=== PATIENT | female | born 1990 | race Caucasian/White ===

== ENCOUNTER 2016-06-15 00:39 | Inpatient (IN) | payer OTHER ==
[2016-06-15] VITALS (20 sets, daily range): BP systolic 99–130; BP diastolic 54–88
[~2016-06-15 00:39] MED LIST: COLA100C3 PO; IBUP60TA PO; PERCOCET PO; TUMS500C PO; VITAPRTA PO
[2016-06-15] MEDS ORDERED: LR 1,000 ML IV SCH (01:13)
[2016-06-15] MEDS ORDERED: PENICILLIN G POTASSIUM IV 5 MU in D5W MINI-BAG PLUS 100 ML IV STA (01:13)
[2016-06-15] MEDS ORDERED: LACTATED RINGER'S 1000 ML IV ONE (01:15)
[2016-06-15] MEDS ORDERED: OXYTOCIN 30 UNITS IN 0.9% NaCl 500ML IV BAG (J2590) As Ordered ONE (01:27)
[2016-06-15 01:36] LABS: MEAN CORPUSCULAR HEMOGLOBIN 30.4 pg (27.0-33.0); MEAN CORPUSCULAR HGB CONC 34.4 g/dl (32.0-36.5); MEAN CORPUSCULAR VOLUME 88.4 fl (80.0-96.0); RED CELL DISTRIBUTION WIDTH 13.6 % (11.5-14.5); WHITE BLOOD COUNT 9.9 K/mm3 (4.0-10.0)
[2016-06-15] MEDS ORDERED: FENTANYL 2MCG/ML ROPIVACAINE 0.2% IN 0.9% NACL 200ML IVBAG As Ordered ONE (01:44)
[2016-06-15] MEDS ORDERED: OXYTOCIN DRIP 30 UNITS in APPROPRIATE DILUENT 1 EA IV SCH (03:02)
[2016-06-15] MEDS ORDERED: ANUSOL HC CREAM 30GM TOP PRN (03:15)
[2016-06-15] MEDS ORDERED: MEASLES,MUMPS,RUBELLA VACCINE INJ (MMR-II) (90707) SC SCH (03:15)
[2016-06-15] MEDS ORDERED: DOCUSATE SODIUM 100 MG CAP PO PRN (03:15)
[2016-06-15] MEDS ORDERED: OXYTOCIN INJ 10 UNITS/ML VIAL (J2590) IV ONE ×2 (03:15→04:45)
[2016-06-15] MEDS ORDERED: RHOGAM 300 MCG (1500 IU) INJ (J2790) IM SCH (03:15)
[2016-06-15] MEDS ORDERED: DIBUCAINE 1% OINTMENT 30GM TOP PRN (03:15)
[2016-06-15] MEDS ORDERED: LIDOCAINE 1% MDV INJ 50 ML VIAL INFIL ONE ×2 (03:15→04:45)
[2016-06-15] MEDS ORDERED: METHYLERGONOVINE MALEATE 0.2 MG TAB PO PRN (03:15)
[2016-06-15 03:18] LABS: CORD GAS ABE A -2.9; CORD GAS HCO3 A 25.3 MEQ/L; CORD GAS O2 SAT A 38.7 %; CORD GAS PCO2 A 59.1 mmHg; CORD GAS PH A 7.249 UNITS; CORD GAS PO2 A 20.3 mmHg; CORD GAS SBC A 20.8 MEQ/L; CORD GAS TCO2 A 27.1 MEQ/L
[2016-06-15 03:20] LABS: CORD GAS ABE V -2.9; CORD GAS HCO3 V 23.5 MEQ/L; CORD GAS O2 SAT V 59.2 %; CORD GAS PH V 7.316 UNITS; CORD GAS PO2 V 25.5 mmHg; CORD GAS SBC V 21.2 MEQ/L; CORD GAS TCO2 V 24.9 MEQ/L
[2016-06-15] MEDS ORDERED: NALOXONE INJ 0.4 MG/1 ML VIAL (J2310) IV PRN (04:30)
[2016-06-15] MEDS ORDERED: FENTANYL/ROPIVACAINE/NACL BAG 200 ML EPIDURAL SCH (04:30)
[2016-06-15] MEDS ORDERED: ONDANSETRON 4MG/2ML VIAL (J2405) IV PRN (04:30)
[2016-06-15] MEDS ORDERED: EPIDURAL COMMENT XX SCH (04:30)
[2016-06-15] MEDS ORDERED: EPIDURAL/PCA KEYS XX PRN (04:30)
[2016-06-15] MEDS ORDERED: ePHEDrine SULFATE 25 MG/5 ML(5MG/ML) SYRINGE IV PRN (04:30)
[2016-06-15] MEDS ORDERED: diphenhydrAMINE INJ 50MG/ML VIAL (J1200) IV PRN (04:30)
[2016-06-15] MEDS ORDERED: LACTATED RINGER'S 1000 ML IV PRN (04:30)
[2016-06-15] MEDS ORDERED: REFRIGERATOR IV KEYS XX PRN (04:30)
[2016-06-15] MEDS ORDERED: PENICILLIN G POTASSIUM IV 2.5 MU in D5W 100 ML IV SCH (05:15)
[2016-06-15] MEDS: IBUPROFEN 800 MG TAB PO PRN ×2 (06:45→16:24)
[2016-06-15] MEDS: ACETAMINOPHEN 500 MG TAB PO PRN ×3 (06:45→19:52)
[2016-06-15] MEDS: PRENATAL VITAMIN TAB PO SCH (07:36)
--- NOTE | 2016-06-15 13:37 | IPN ---
DATE: 06/15/2016 This lady and requested circumcision of their male . After discussing the risks and benefits of circumcision, the medical and nonmedical indications, the penile block and aftercare, the patient signed and witnessed the consent form and we await the clearance by the geophysical prospecting surveyor.
--- NOTE | 2016-06-15 13:40 | HPE ---
DATE OF ADMISSION: 06/15/2016 This lady is a 3, para 2, 26 years of age, returning after having been sent home because of prodromal contractions. We gave her 3 liters of fluid, three doses of terbutaline, and she still had contractions spaced out to 4 to 6 minutes apart. We had given her the option of remaining here or going home and coming back when she was in active labor. She elected to go home and await spontaneous labor. When she returned, she was in active labor. On examination, she was found to be 8 cm dilated with bulging membranes at zero station and 100% effaced, and she was in moderate distress. We discussed the fact that she has had two previous sections, but at the present moment she is what we consider an ideal candidate for a trial of labor after section (TOLAC) and the fact the time that it would take to get the epidural set up for the section she probably will have her baby. We discussed the risks and benefits of section, which are emergency section, hemorrhage, infection, perforation, , lacerations of the fetus, remote possibility of blood transfusion, remote possibility hysterectomy. We discussed the risks and benefits of TOLAC, including vaginal tears, rupture of the uterus, atonic uterus and distress. After an extensive discussion, the and elected to go ahead and have a TOLAC. In between contractions and pushing, an artificial rupture of membranes was done draining meconium stained liquor. We contacted neonatology to be in attendance. Shortly thereafter she started pushing. In summary, we have a 35 and 6 weeks of gestation in active labor, imminently ready to deliver. Her hemoglobin was 12.6, hematocrit 36.5 and platelets were 177. We attempted to get an epidural; however, she continued to be pushing and so epidural was not available.
--- NOTE | 2016-06-15 14:13 | DN ---
DATE: 06/15/2016 26-year-old, 3, para 2, admitted in active labor, had a trial of labor after (TOLAC) to vaginal after section () of a live male weighing 7 pounds 3 ounces, 3266 grams, of 8 and 9 at [address] El in attendance for resuscitation. Arterial pH 7.24, base excess -2.9, venous pH 7.31, base excess -2.9. The patient spontaneously and uncontrollably delivered a live male infant. Sustained a left side wall tear all the way up to the vaginal fornix, as well as, a second-degree tear in the perineum. The patient required an epidural for repair, after which, using adequate visualization and suction we were able to repair the left lateral sidewall down to the fourchette. Then we repaired the second degree tear separately from the midline, spontaneous tear. On digital examination, the sphincter was intact, the mucosa was intact. Visualization and inspection after repair showed good hemostasis in the left lateral sidewall, the cervix was complete and the rest of the vagina was intact. The uterus contracted well down on Pitocin. The placenta delivered spontaneously, three-vessels and the cord, membranes and tissues intact, and was sent off to pathology. In summary, we have a 3, who had a successful of a live male . Dr. Erazo.
[2016-06-16] MEDS: IBUPROFEN 800 MG TAB PO PRN ×2 (00:06→08:50)
[2016-06-16 04:30] VITALS: BP 111/59
[2016-06-16 06:58] LABS: MEAN CORPUSCULAR HEMOGLOBIN 32.2 pg (27.0-33.0); MEAN CORPUSCULAR HGB CONC 35.5 g/dl (32.0-36.5); MEAN CORPUSCULAR VOLUME 90.7 fl (80.0-96.0)
[2016-06-16] MEDS: PRENATAL VITAMIN TAB PO SCH (08:50)
[2016-06-16] MEDS ORDERED: ACET50TA PO (09:04)
[2016-06-16] MEDS ORDERED: COLA100C3 PO (09:04)
[2016-06-16] MEDS ORDERED: IBUP-1114 PO (09:04)
== END 2016-06-16 11:22 | disposition home or self-care (01) | DRG 775 ==
LOC: M LDO 00:39 → M LDI 01:10 → M OBS 06:13
PROVIDERS: ADMIT Obstetrics & Gynecology; ATTEND Obstetrics & Gynecology
PROC: 10E0XZZ Delivery of Products of Conception, External Approach (ICD-10-PCS; principal; 2016-06-15)
PROC: 0KQM0ZZ Repair Perineum Muscle, Open Approach (ICD-10-PCS; 2016-06-15)
PROC: 10907ZC Drainage of Amniotic Fluid, Therapeutic from Products of Conception, Via Natural or Artificial Opening (ICD-10-PCS; 2016-06-15)
DX: O60.14X0 Preterm labor third trimester with preterm delivery third trimester, not applicable or unspecified (principal); O34.211 Maternal care for low transverse scar from previous cesarean delivery; O70.1 Second degree perineal laceration during delivery; Z3A.35 35 weeks gestation of pregnancy; Z37.0 Single live birth